=== PATIENT | male | born 1970 | race Caucasian/White ===

== ENCOUNTER 2018-08-29 17:45 | Inpatient (IN) | payer MEDICARE ==
[~2018-08-29] VITALS: Ht 175.3 cm; Wt 200.8 kg
[2018-08-29] MEDS ORDERED: CARV6.25 PO (18:06)
[2018-08-29] MEDS ORDERED: CLON0.2T PO (18:06)
[2018-08-29] MEDS ORDERED: PLAV1TAB2 PO (18:06)
[2018-08-29] MEDS ORDERED: LABE20TAB PO (18:06)
[2018-08-29] MEDS ORDERED: HYDR-4517 PO (18:06)
[2018-08-29] MEDS ORDERED: XANA0.5T PO (18:06)
[2018-08-29] MEDS ORDERED: FLUO40CA PO (18:06)
[2018-08-29] MEDS ORDERED: AMLO10TA PO (18:06)
[2018-08-29] MEDS ORDERED: LASI20TA3 PO (18:06)
[2018-08-29] MEDS ORDERED: ATOR40TA75 PO (18:06)
[2018-08-29] MEDS ORDERED: ASPI81TA85 PO (18:06)
[2018-08-29] MEDS ORDERED: ISOS30TA4 PO (18:06)
[2018-08-29] MEDS ORDERED: POTA10CA32 PO (18:06)
[2018-08-29 18:22] LABS: BASO % 0.4 % (0.0-1.0); EOS # 0.3 10^3/uL (0.0-0.50); EOS % 4.5 % (0.0-3.0); HEMATOCRIT 37.7 % (42.0-52.0); HEMOGLOBIN 12.5 g/dl (13.5-17.5); LYMPH # 1.7 10^3/uL (1.5-4.5); LYMPH % 25.7 % (24.0-44.0); MEAN CORPUSCULAR HEMOGLOBIN 30.4 pg (27.0-33.0); MEAN CORPUSCULAR HGB CONC 33.2 g/dl (32.0-36.5); MEAN CORPUSCULAR VOLUME 91.7 fl (80.0-96.0); MONO # 0.6 10^3/uL (0.0-0.8); MONO % 9.2 % (0.0-5.0); NEUTROPHILS % 59.9 % (36.0-66.0); PLATELET COUNT, AUTOMATED 185 10^3/uL (150-450); RED BLOOD COUNT 4.11 10^6/uL (4.30-6.10); WHITE BLOOD COUNT 6.7 10^3/uL (4.0-10.0)
[2018-08-29 18:33] LABS: INR 0.96; PROTHROMBIN TIME 12.5 SECONDS (11.8-14.0)
[2018-08-29 18:34] LABS: PARTIAL THROMBOPLASTIN TIME 28.6 SECONDS (25.0-38.4)
[2018-08-29] MEDS ORDERED: ISOVUE-370 76% 100ML VIAL (Q9967) As Ordered ONE (18:35)
[2018-08-29 19:04] LABS: ALBUMIN 3.4 GM/DL (3.2-5.2); ALT/SGPT 23 U/L (12-78); BILIRUBIN,DIRECT 0.1 MG/DL (0.0-0.2); BILIRUBIN,TOTAL 0.4 MG/DL (0.2-1.0); CK-MB VALUE MASS 1.3 NG/ML (<3.6); CPK CREATINE PHOSPHOKINASE 70 U/L (39-308); FREE T4 1.16 NG/DL (0.76-1.46); LIPASE 203 U/L (73-393); MB/CK RELATIVE INDEX 1.86 (< OR =4); NT-PRO BNP 164 PG/ML (<125); TOTAL PROTEIN 6.5 GM/DL (6.4-8.2); TROPONIN I < 0.02 NG/ML (< 0.10)
--- NOTE | 2018-08-29 19:27 | REPVR ---
EXAM: CT Angiography Chest With Contrast EXAM DATE/TIME: 08/29/2018 6:38 PM CLINICAL HISTORY: 48 years old, male; Chest pain; Type not specified; Additional info: Cp, [facility] TECHNIQUE: Imaging protocol: Axial computed tomographic angiography images of the chest with intravenous contrast using CT angiography protocol. Coronal and sagittal reformatted images were created and reviewed. 3D rendering: MIP reconstructed images were created and reviewed. Radiation optimization: All CT scans at this facility use at least one of these dose optimization techniques: automated exposure control; mA and/or kV adjustment per patient size (includes targeted exams where dose is matched to clinical indication); or iterative reconstruction. Contrast material: ISOVUE 370; Contrast volume: 100 ml; Contrast route: IV; COMPARISON: CR PORTABLE CHEST X-RAY 08/29/2018 6:14 PM FINDINGS: Pulmonary arteries: There is probable thrombus along the margins of the left pulmonary artery at the left hilum. There are also small lymph nodes of the left hilum making evaluation more difficult and separation difficult. There are small lymph nodes at the right hilum. However it is suspected that there is a small amount of thrombus along the margin of the right lower lobe pulmonary artery. Small probable emboli in the pulmonary arteries approaching the right lung base. Evaluation is made more difficult because of hilar/small lymph nodes and lymphoid tissue. Aorta: There is opacification of the aorta which appears intact. Thyroid: There is a 1.4 CM nodule of the left lobe of the thyroid with central calcification. Although this nodule is not large calcification makes this somewhat worrisome. I would recommend thyroid ultrasound for further evaluation in this patient. Lungs: Unremarkable. No consolidation. No masses. Pleural space: Unremarkable. No pneumothorax. No pleural effusion. Heart: There is mild cardiomegaly with no evidence of pericardial effusion. Bones/joints: Unremarkable. No acute fracture. Soft tissues: Unremarkable. IMPRESSION: 1. Suspect thrombus at the margins of the left pulmonary artery as it bifurcates at the left hilum. It is difficult to separate this from prominent lymph nodes and lymphoid tissue. 2. Suspect thrombus along the margins of the right pulmonary artery at the right infrahilar region and probable small pulmonary emboli in descending pulmonary arterial branches to the right lung base. This also is difficult to separate from right infrahilar lymphoid tissue, however, the small filling defects in the more distal branches make this all more suggestive of PE. 3. 1.3 CM left thyroid nodule with calcifications making this of more concern and suggest thyroid ultrasound. COMMENT: In patients aged 35 years and older with an incidental thyroid nodule equal to or greater than 1.[address], MRI or extrathyroidal US, further evaluation with dedicated thyroid US is recommended for patients with normal life expectancy and without comorbidities. For smaller nodules without suspicious features, no further evaluation or follow up is recommended. Electronically signed by: Sesar Villa On 08/29/2018 19:27:34 PM
[2018-08-29] MEDS ORDERED: HEPARIN DRIP 25,000 UNITS in APPROPRIATE DILUENT 1 EA IV SCH ×2 (19:38→20:18)
[2018-08-29] MEDS ORDERED: HEPARIN SOD (PORCINE) 5000 UNITS/ML VIAL IV ONE (19:45)
[2018-08-29] MEDS ORDERED: MOM 30ML SUSPENSION UDC PO PRN (20:15)
[2018-08-29] MEDS ORDERED: MAALOX 30 ML SUSP *UDC PO PRN (20:15)
[2018-08-29] MEDS ORDERED: ACETAMINOPHEN TAB 650MG DOSE (2X325MG) PO PRN (20:15)
[2018-08-29] MEDS ORDERED: HEPARIN SOD (PORCINE) 5000 UNITS/ML VIAL IV PRN (20:30)
--- NOTE | 2018-08-29 20:30 | HPEPDOC ---
General Date of Admission 08/29/18 Date of Service: Aug 29, 2018 Attending Physician: MAXWELL JUAREZ MD Chief Complaint The patient is a 48-year-old male admitted with a reason for visit of Chest Pain . Source: Patient Exam Limitations: No limitations Timing/Duration: Other (posterior) Severity: Moderate Associated Symptoms: Chest Pain, Shortness of breath History of Present Illness 48 years old, morbidly obese, white male with past medical history of coronary artery disease status post 6 stents placed in last one in July 2018 at [facility] in [place]. Patient complaining of chest pain which radiates to between his both shoulders and then towards his neck and he feels tired afterwards and these episodes are transient, lasting for about 5-10 minutes and resolved spontaneously. No medications or position induces it or resolves it. These chest pains are associated with mild shortness of breath, but no syncope, nausea, vomiting, etc. Patient lives in [facility]. Since last 2 days for the similar symptoms. The cardiac workup done and was discharged home today, while he was in became he developed the similar symptoms and decided come to [facility] ED. Home Medications Scheduled Amlodipine Besylate (Norvasc) 10 Mg Tablet, 10 MG PO QHS, (Reported) Aspirin (Aspir 81) 81 Mg Tablet.dr, 81 MG PO DAILY, (Reported) Atorvastatin Calcium (Atorvastatin Calcium) 40 Mg Tablet, 40 MG PO DAILY, (Reported) Carvedilol (Carvedilol) 6.25 Mg Tablet, 6.25 MG PO BID, (Reported) Clonidine HCl (Clonidine HCl) 0.2 Mg Tablet, 0.2 MG PO TID, (Reported) Clopidogrel Bisulfate (Plavix) 75 Mg Tablet, 75 MG PO DAILY, (Reported) Ergocalciferol (Vitamin D2) (Drisdol) 50,000 Unit Capsule, 50,000 UNIT PO 1XWK, (Reported) FRIDAYS Fluoxetine Hcl (Fluoxetine HCl) 40 Mg Capsule, 40 MG PO DAILY, (Reported) Furosemide (Lasix) 20 Mg Tablet, 20 MG PO BID, (Reported) Irbesartan (Irbesartan) 150 Mg Tablet, 150 MG PO DAILY, (Reported) Isosorbide Mononitrate (Isosorbide Mononitrate ER) 30 Mg Tab.er.24h, 30 MG PO BID, (Reported) Labetalol HCl (Labetalol HCl) 200 Mg Tablet, 400 MG PO BID, (Reported) Nitroglycerin (Nitroglycerin Patch) 0.4 Mg/Hr Patch.td24, 0.4 MG TD DAILY, (Reported) 12 HOURS ON, 12 HOURS OFF Potassium Chloride (Potassium Chloride) 10 Meq Capsule.er, 10 MEQ PO DAILY, (Reported) Ranolazine (Ranexa) 1,000 Mg Tab.er.12h, 1,000 MG PO BID, (Reported) Scheduled PRN Alprazolam (Alprazolam) 0.25 Mg Tablet, 0.25 MG PO BID PRN for ANXIETY, (Reported) Fluticasone Propionate (Flonase Allergy Relief) 9.9 Ml [place].susp, 2 SPRAY NARES DAILY PRN for CONGESTION, (Reported) Hydrocodone/Acetaminophen (Hydrocodone-Acetamin 10-325 mg) 1 Each Tablet, 1 TAB PO TID PRN for PAIN, (Reported) Nitroglycerin (Nitrostat) 0.4 Mg Tab.subl, 0.4 MG SL NITRO PRN for CHEST PAIN, (Reported) Allergies Coded Allergies: Penicillins (Verified Allergy, Unknown, RASH, 08/29/18) amoxicillin (Verified Allergy, Unknown, RASH, 08/29/18) baclofen (Verified Allergy, Unknown, RASH/NV, 08/29/18) ketorolac (Verified Allergy, Unknown, SOB, 08/29/18) lisinopril (Verified Allergy, Unknown, LIP SWELLING, 08/29/18) metaxalone (Verified Allergy, Unknown, RASH/NV, 08/29/18) naproxen (Verified Allergy, Unknown, RASH/NV, 08/29/18) tree nut (Verified Allergy, Unknown, SWELLING, 08/29/18) Past Medical History Medical History CAD, hypertension, lymphadenopathy, DJD neck herniated disks PVD Surgical History 6. Cardiac stents placed and no other surgeries Family History Significant Family History: No pertinent family hx Social History * Smoker: Denies Alcohol: Denies Drugs: denies A-FIB/CHADSVASC A-FIB History Current/History of A-Fib/PAF?: No Review of Systems Constitutional: Denies: Chills, Fever, Malaise, Night Sweats, Weakness, Fatigue, Weight Loss, Lethargy, Other Eyes: Denies: Pain, Vision change, Conjunctivae inflammation, Eyelid inflammation, Redness, Other ENT: Denies: Head Aches, Ear Pain, Dysphagia, Sinus Congestion, Post Nasal Drip, Sore Throat, Epistaxis, Other Symptoms Skin: Denies: Rash, Lesions, Jaundice, Bruising, Itching, Dry, Breakdown, Nail Changes, Other Pulmonary: Reports: Dyspnea Cardiovascular: Reports: Chest Pain Gastrointestinal: Denies: Nausea, Vomiting, Abdominal Pain, Diarrhea, Constipation, Melena, Hematochezia, Other Symptoms Genitourinary: Denies: Dysuria, Frequency, Incontinence, Hematuria, Retention, Other Symptoms Hematologic: Denies: Bruising, Bleeding Excessively, Petecchia, Purpura, Enlarged Lymph Nodes, Other Hematologic Endocrine: Denies: Polydipsia, Polyphagia, Polyuria, Heat Intolerance, Cold Intolerance, Other Endocrine Sx Musculoskeletal: Denies: Neck Pain, Back Pain, Shoulder Pain, Arm Pain, Hand Pain, Leg Pain, Foot Pain, Joint Pain, Muscle Pain, Spasms, Other Symptoms Neurological: Denies: Weakness, Numbness, Incoordination, Change in speech, Confusion, Seizures, Other Symptoms Psych: Denies: Mood Normal, Anxiety, Depression, Memory Issues, Thoughts of Self Harm, Anger, Thoughts of Harming Other, Other Psych Physical Examination General Exam: Positive: Alert, Cooperative Eye Exam: Positive: PERRLA, Conjunctiva & lids normal ENT Exam: Positive: Atraumatic, Mucous membr. moist/pink Neck Exam: Positive: Supple Chest Exam: Positive: Clear to auscultation Heart Exam: Positive: Rate Normal, Normal S1, Normal S2 Abdomen Exam: Positive: Normal bowel sounds, Soft Extremity Exam: Positive: Normal pulses Skin Exam: Positive: Nl turgor and temperature Neuro Exam: Positive: Normal Speech, Strength at 5/5 X4 ext, Sensation Intact Psych Exam: Positive: Mental status NL, Mood NL, Oriented x 3 Vital Signs Vital Signs Date Time Temp Pulse Resp B/P (MAP) Pulse Ox O2 Delivery O2 Flow Rate FiO2 08/29/18 19:23 64 18 137/87 (104) 98 Room Air 08/29/18 18:33 97.6 Laboratory Data Labs 24H Laboratory Tests 2 08/29/18 18:15: Immature Granulocyte % (Auto) 0.3, White Blood Count 6.7, Red Blood Count 4.11L, Hemoglobin 12.5L, Hematocrit 37.7L, Mean Corpuscular Volume 91.7, Mean Corpuscular Hemoglobin 30.4, Mean Corpuscular Hemoglobin Concent 33.2, Red Cell Distribution Width 14.4, Platelet Count 185, Neutrophils (%) (Auto) 59.9, Lymphocytes (%) (Auto) 25.7, Monocytes (%) (Auto) 9.2H, Eosinophils (%) (Auto) 4.5H, Basophils (%) (Auto) 0.4, Neutrophils # (Auto) 4.0, Lymphocytes # (Auto) 1.7, Monocytes # (Auto) 0.6, Eosinophils # (Auto) 0.3, Basophils # (Auto) 0.0, Nucleated Red Blood Cells % (auto) 0.0, Prothrombin Time 12.5, Prothromb Time International Ratio 0.96, Activated Partial Thromboplast Time 28.6, Aspartate Amino Transf (AST/SGOT) 13, Alanine Aminotransferase (ALT/SGPT) 23, Alkaline Ph osphatase 109, Total Bilirubin 0.4, Direct Bilirubin 0.1, Total Creatine Kinase 70, Creatine Kinase MB 1.3, Creatine Kinase MB Relative Index 1.86, Troponin I < 0.02, LO-Wvl-P-Type Natriuretic Peptide 164H, Total Protein 6.5, Albumin 3.4, Albumin/Globulin Ratio 1.10, Lipase 203, Thyroid Stimulating Hormone (TSH) 4.010H, Free Thyroxine 1.16 08/29/18 18:16: POC Glucose (Misc Panel) 115H, POC Sodium (Misc Panel) 139, POC Potassium (Misc Panel) 4.4, POC Chloride (Misc Panel) 99, POC Total CO2 (Misc Panel) 29.0H, POC Blood Urea Nitrogen (Misc Panel 18, POC Ionized Calcium (Misc Panel) 4.8, POC Creatinine (Misc Panel) 1.2, POC Hematocrit (Misc Panel) 36.0L CBC/BMP Laboratory Tests 08/29/18 18:15 Red Blood Count 4.11 L, Mean Corpuscular Volume 91.7, Mean Corpuscular Hemoglobin 30.4, Mean Corpuscular Hemoglobin Concent 33.2, Red Cell Distribution Width 14.4, Neutrophils (%) (Auto) 59.9, Lymphocytes (%) (Auto) 25.7, Monocytes (%) (Auto) 9.2 H, Eosinophils (%) (Auto) 4.5 H, Basophils (%) (Auto) 0.4, Neutrophils # (Auto) 4.0, Lymphocytes # (Auto) 1.7, Monocytes # (Auto) 0.6, Eosinophils # (Auto) 0.3, Basophils # (Auto) 0.0 Problems (1) Pulmonary emboli Status: Acute Problem Text: 48 years old white male admitted with the chest pain with mild shortness of breath. He had a CT angiogram done which shows suspected thrombus at the margin of left pulmonary artery as it bifurcates into the left hilum and suspected thrombus along the margins of right pulmonary artery and the right infrahilar region and small pulmonary emboli and descending pulmonary artery branches. The right lung base. Patient does have a small filling defects and more distal branches making him more like PE. Patient also has a 1.3 cm left thyroid nodule with calcification and the ultrasound was recommended. Admitted to PCU for close observation Telemetry monitoring patient is clinically stable with vital signs are stable and the pulse ox is 98% on room air Start anticoagulation with heparin, add by mouth Coumadin and 24-48 hours once he is completely anticoagulated with heparin Continue all home medications PT, PTT, as per heparin protocol Discussed with Dr. patino and agreed with the present management Continue all home medications Thyroid ultrasound for possible thyroid nodule DVT prophylaxis, patient already on full-strength heparin for anticoagulation for PE 2 g sodium diet Bed rest with bedside commode O2 support as needed (2) Thyroid nodule Problem Text: Ultrasound of the thyroid gland has been ordered for further workup as per radiology's recommendation , TSH, T3, T4 ordered Plan / VTE VTE Prophylaxis Ordered?: Yes MAXWELL JUAREZ MD Aug 29, 2018 20:30
[2018-08-29] MEDS ORDERED: NITR0.4D6 TD (20:39)
[2018-08-29] MEDS ORDERED: NITR4TASL SL (20:39)
[2018-08-29] MEDS ORDERED: IRBE150T12 PO (20:39)
[2018-08-29] MEDS ORDERED: ALPR0.25 PO (20:39)
[2018-08-29] MEDS ORDERED: FLON1SPR NARES (20:40)
[2018-08-29] MEDS ORDERED: RANE1000 PO (20:40)
[2018-08-29] MEDS ORDERED: DRIS50003 PO (20:42)
[2018-08-29] MEDS: DOCUSATE SODIUM 100 MG CAP PO SCH (20:49)
[2018-08-29] MEDS: ISOSORBIDE MON. (IMDUR) 30 MG XR TAB PO SCH (21:00)
[2018-08-29] MEDS: amLODIPine 10 MG TAB PO SCH (21:00)
[2018-08-29] MEDS: LABETALOL 200 MG TAB PO SCH (21:00)
[2018-08-29 21:50] VITALS: BP 155/77
--- NOTE | 2018-08-29 22:07 | REPVR ---
EXAM: US Soft Tissue Head and Neck, Thyroid EXAM DATE/TIME: 08/29/2018 9:28 PM CLINICAL HISTORY: 48 years old, male; Abnormal findings; Abnormal radiologic study of neck; Additional info: Thyroid nodule TECHNIQUE: Imaging protocol: Real-time ultrasound scan of the neck with image documentation. Exam focused on the thyroid. COMPARISON: No relevant prior studies available. FINDINGS: Right thyroid lobe: The right lobe of thyroid measures 5.8 CM in length by 1.9 CM in width by 2 CM in AP dimension. I do not detect nodules of the right lobe of the thyroid. Left thyroid lobe: The left lobe of the thyroid measures 5.4 CM in length by 1.8 CM in width by 1.4 CM in AP dimension. At the lateral aspect of the upper pole left lobe of the thyroid there is a 4.9 mm x 8.2 mm x 3.9 mm nodule with calcifications. This is fairly well defined and I do not detect significant vascularity. In the midportion left lobe of the thyroid medial in position there is a 10.9 mm x 10.2 mm x 10.2 mm nodule with central calcification. I do not detect excessive vascularity. Isthmus: The isthmus of the thyroid measures 4 mm. These left nodules are probably benign, however, I would recommend a followup ultrasound in no longer than 6 months for reevaluation and to document stability. IMPRESSION: There are 2 nodules left lobe of the thyroid both with calcifications and probably benign nodules. Recommend followup ultrasound in 6 months to document that these are stable. Electronically signed by: Sesar Villa On 08/29/2018 22:07:18 PM
[2018-08-29] MEDS: NORCO, ANEXSIA 5/325MG TABLET (HYDROcodone/ACETAMINOPHEN) PO PRN (23:00)
[2018-08-30] VITALS (7 sets, daily range): BP systolic 104–142; BP diastolic 56–96
[2018-08-30] MEDS ORDERED: FLUTICASONE PROP 0.05% NASAL SPRAY 16 GM (FLONASE) NARES PRN
[2018-08-30] MEDS ORDERED: NITROGLYCERIN 0.4 MG SUBL TABLET SL PRN
[2018-08-30] MEDS: CARVedilol 6.25 MG TAB PO SCH ×3 (01:03→20:35)
[2018-08-30] MEDS: cloNIDine 0.2 MG TAB PO SCH ×4 (01:03→20:36)
[2018-08-30] MEDS: RANOLAZINE 500 MG ER TAB PO SCH ×3 (01:03→20:35)
[2018-08-30 04:56] LABS: HEMATOCRIT 36.6 % (42.0-52.0); HEMOGLOBIN 11.9 g/dl (13.5-17.5); MEAN CORPUSCULAR HEMOGLOBIN 29.1 pg (27.0-33.0); MEAN CORPUSCULAR HGB CONC 32.5 g/dl (32.0-36.5); MEAN CORPUSCULAR VOLUME 89.5 fl (80.0-96.0); PLATELET COUNT, AUTOMATED 167 10^3/uL (150-450); RED BLOOD COUNT 4.09 10^6/uL (4.30-6.10); WHITE BLOOD COUNT 5.5 10^3/uL (4.0-10.0)
[2018-08-30 05:33] LABS: ALBUMIN 2.8 GM/DL (3.2-5.2); ALT/SGPT 22 U/L (12-78); BILIRUBIN,TOTAL 0.4 MG/DL (0.2-1.0); BLOOD UREA NITROGEN 17 MG/DL (7-18); CALCIUM LEVEL 8.2 MG/DL (8.5-10.1); CARBON DIOXIDE LEVEL 31 MEQ/L (21-32); CHLORIDE LEVEL 105 MEQ/L (98-107); CREATININE FOR GFR 1.16 MG/DL (0.70-1.30); GLOMERULAR FILTRATION RATE > 60.0 (>60); GLUCOSE, FASTING 115 MG/DL (70-100); MAGNESIUM LEVEL 2.2 MG/DL (1.8-2.4); POTASSIUM SERUM 4.1 MEQ/L (3.5-5.1); SODIUM LEVEL 140 MEQ/L (136-145); TOTAL PROTEIN 6.1 GM/DL (6.4-8.2); TROPONIN I < 0.02 NG/ML (< 0.10)
--- NOTE | 2018-08-30 07:18 | ECGEPIP ---
[facility] - ED Test Date: 2018-08-29 Pat Name: JACKI SCHULTZ Department: Room: [place] [address] Gender: Male [employer] Assistant: lori : 1970 Requested By: Tia Maldonado Order Number: [id number] Reading MD: Prudencio Craig Measurements Intervals [place] Rate: 71 P: 9 NM: 198 QRS: 9 QRSD: 101 T: 39 QT: 382 QTc: 416 Interpretive Statements SINUS RHYTHM NO PRIORS FOR COMPARISON Electronically Signed on 08-30-2018 7:18:04 EDT by Prudencio Craig
[2018-08-30] MEDS: ATORVASTATIN 20 MG TAB PO SCH (08:22)
[2018-08-30] MEDS: LABETALOL 200 MG TAB PO SCH ×2 (08:23→20:35)
[2018-08-30] MEDS: ISOSORBIDE MON. (IMDUR) 30 MG XR TAB PO SCH ×2 (08:24→20:34)
[2018-08-30] MEDS: DOCUSATE SODIUM 100 MG CAP PO SCH ×2 (08:24→20:34)
[2018-08-30] MEDS: POTASSIUM CHLORIDE 10 MEQ SR TABLET PO SCH (08:24)
[2018-08-30] MEDS: CLOPIDOGREL 75 MG TAB PO SCH (08:24)
[2018-08-30] MEDS: NORCO, ANEXSIA 5/325MG TABLET (HYDROcodone/ACETAMINOPHEN) PO PRN ×4 (08:25→20:36)
[2018-08-30] MEDS: IRBESARTAN 150 MG TAB PO SCH (08:25)
[2018-08-30] MEDS: ASPIRIN 81 MG ENTERIC TAB PO SCH (08:25)
[2018-08-30] MEDS: NITROGLYCERIN 0.4 MG/HR PATCH TD SCH (08:26)
[2018-08-30] MEDS: FLUoxetine 20 MG CAP PO SCH (08:32)
[2018-08-30] MEDS: FUROSEMIDE 20 MG TAB PO SCH ×2 (08:32→16:17)
[2018-08-30 10:00] LABS: TOTAL T3 165.3 NG/DL (60.0-181.0)
--- NOTE | 2018-08-30 10:13 | REP ---
CHEST, SINGLE VIEW: There is no evidence of acute infiltrate. No pleural effusion is seen. The heart is normal in size. The mediastinal silhouette is unremarkable. The visualized osseous structures are intact. IMPRESSION: No acute pulmonary disease. Electronically Signed by Parminder Dumont MD 08/31/2018 01:28 P
[2018-08-30] MEDS ORDERED: RIVAROXABAN 15 MG TAB (XARELTO) PO SCH (12:00)
[2018-08-30 12:10] LABS: INR 1.03; PROTHROMBIN TIME 13.2 SECONDS (11.8-14.0)
--- NOTE | 2018-08-30 17:13 | IPNPDOC ---
Subjective Date Seen The patient was seen on 08/30/18.at 835 am Subjective Chief Complaint/HPI chest pain upper back pain Events since last encounter patient reports chest pain is still persistent and he is short of breath with walking Objective Physical Examination General Exam: Positive: Alert, Cooperative, Other (morbidly obeses) Eye Exam: Positive: PERRLA, Conjunctiva & lids normal ENT Exam: Positive: Atraumatic, Mucous membr. moist/pink Neck Exam: Positive: Supple Chest Exam: Positive: Clear to auscultation Heart Exam: Positive: Rate Normal, Normal S1, Normal S2 Abdomen Exam: Positive: Normal bowel sounds, Soft Extremity Exam: Positive: Normal pulses, Swelling (LLE swollen for several weeks per patient) Skin Exam: Positive: Nl turgor and temperature Neuro Exam: Positive: Normal Speech, Strength at 5/5 X4 ext, Sensation Intact Psych Exam: Positive: Mental status NL, Mood NL, Oriented x 3 Assessment /Plan Assessment is a 48 yr old M w CAD (s/p 6 stents), Morbid obesity, hypertension, lymphadenopathy, DJD, neck herniated disks and PVD who is admitted for management of DVT/PE. 1.PE/DVT- not submassive as trops wnl and BNP only slightly elevated Plan: f/u Echo report/ c/w Heparin drip and per d/w (Wrapper Hand) will transition to Warfarin (bc of his BMI it may be difficult to start a NOAC), f/u INR daily until therapeutic 2.Thyroid nodule US report "IMPRESSION: There are 2 nodules left lobe of the thyroid both with calcifications and probably benign nodules. Recommend followup ultrasound in 6 months to document that these are stable" -TSH 4.0 but T4 and T3 wnl Plan:can f/u w endo on an out patient basis 3.CAD Plan: c/w current meds 4. HTN Plan: c/w current meds Problems (1) Pulmonary emboli Status: Acute (2) Thyroid nodule Status: Chronic Plan/VTE VTE Prophylaxis Ordered?: Yes (heparin and transition to warfarin) Disposition home pending therapeutic INR VS, I&O, 24H, Fishbone Vital Signs/I&O Vital Signs Date Time Temp Pulse Resp B/P (MAP) Pulse Ox O2 Delivery O2 Flow Rate FiO2 08/30/18 16:16 120/72 08/30/18 16:16 20 7/22/19 16:00 97.1 65 98 08/29/18 20:46 Room Air I&O- Last 24 Hours up to 6 AM 08/30/18 06:00 Intake Total 116 ml Output Total 1475 ml Balance -1359 ml Laboratory Data 24H LABS Laboratory Tests 2 08/29/18 18:15: Immature Granulocyte % (Auto) 0.3, White Blood Count 6.7, Red Blood Count 4.11L, Hemoglobin 12.5L, Hematocrit 37.7L, Mean Corpuscular Volume 91.7, Mean Corpuscular Hemoglobin 30.4, Mean Corpuscular Hemoglobin Concent 33.2, Red Cell Distribution Width 14.4, Platelet Count 185, Neutrophils (%) (Auto) 59.9, Lymphocytes (%) (Auto) 25.7, Monocytes (%) (Auto) 9.2H, Eosinophils (%) (Auto) 4.5H, Basophils (%) (Auto) 0.4, Neutrophils # (Auto) 4.0, Lymphocytes # (Auto) 1.7, Monocytes # (Auto) 0.6, Eosinophils # (Auto) 0.3, Basophils # (Auto) 0.0, Nucleated Red Blood Cells % (auto) 0.0, Prothrombin Time 12.5, Prothromb Time International Ratio 0.96, Activated Partial Thromboplast Time 28.6, Aspartate Amino Transf (AST/SGOT) 13, Alanine Aminotransferase (ALT/SGPT) 23, Alkaline Phosphatase 109, Total Bilirubin 0.4, Direct Bilirubin 0.1, Total Creatine Kinase 70, Creatine Kinase MB 1.3, Creatine Kinase MB Relative Index 1.86, Troponin I < 0.02, EF-Jtb-K-Type Natriuretic Peptide 164H, Total Protein 6.5, Albumin 3.4, Albumin/Globulin Ratio 1.10, Lipase 203, Thyroid Stimulating Hormone (TSH) 4.010H, Free Thyroxine 1.16, Total Triiodothyronine 165.3 08/29/18 18:16: POC Glucose (Misc Panel) 115H, POC Sodium (Misc Panel) 139, POC Potassium (Misc Panel) 4.4, POC Chloride (Misc Panel) 99, POC Total CO2 (Misc Panel) 29.0H, POC Blood Urea Nitrogen (Misc Panel 18, POC Ionized Calcium (Misc Panel) 4.8, POC Creatinine (Misc Panel) 1.2, POC Hematocrit (Misc Panel) 36.0L 08/30/18 02:46: Activated Partial Thromboplast Time 123.5*H, Troponin I < 0.02 08/30/18 04:43: Nucleated Red Blood Cells % (auto) 0.0, Activated Partial Thromboplast Time 115.1H, Aspartate Amino Transf (AST/SGOT) 23, Alanine Aminotransferase (ALT/SGPT) 22, Alkaline Phosphatase 83, Total Bilirubin 0.4, Troponin I < 0.02, Total Protein 6.1L, Albumin 2.8L, Albumin/Globulin Ratio 0.85L, Anion Gap 4L, Glomerular Filtration Rate > 60.0, Blood Urea Nitrogen 17, Creatinine 1.16, Sodium Level 140, Potassium Level 4.1, Chloride Level 105, Carbon Dioxide Level 31, Calcium Level 8.2L, Magnesium Level 2.2 08/30/18 11:34: Prothrombin Time 13.2, Prothromb Time International Ratio 1.03 CBC/BMP Laboratory Tests 08/29/18 18:15 Red Blood Count 4.11 L, Mean Corpuscular Volume 91.7, Mean Corpuscular Hemo globin 30.4, Mean Corpuscular Hemoglobin Concent 33.2, Red Cell Distribution Width 14.4, Neutrophils (%) (Auto) 59.9, Lymphocytes (%) (Auto) 25.7, Monocytes (%) (Auto) 9.2 H, Eosinophils (%) (Auto) 4.5 H, Basophils (%) (Auto) 0.4, Neutrophils # (Auto) 4.0, Lymphocytes # (Auto) 1.7, Monocytes # (Auto) 0.6, Eosinophils # (Auto) 0.3, Basophils # (Auto) 0.0 08/30/18 04:43 Red Blood Count 4.09 L, Mean Corpuscular Volume 89.5, Mean Corpuscular Hemoglobin 29.1, Mean Corpuscular Hemoglobin Concent 32.5, Red Cell Distribution Width 14.5, Calcium Level 8.2 L, Aspartate Amino Transf (AST/SGOT) 23, Alanine Aminotransferase (ALT/SGPT) 22, Alkaline Phosphatase 83, Total Bilirubin 0.4, Total Protein 6.1 L, Albumin 2.8 L JORGE L BERMUDEZ MD Aug 30, 2018 17:13
[2018-08-30] MEDS: amLODIPine 10 MG TAB PO SCH (20:36)
[2018-08-30] MEDS: **NOTE PATIENT COMMENT** MISC XX SCH (20:36)
[2018-08-31] VITALS (7 sets, daily range): BP systolic 99–135; BP diastolic 55–72
[2018-08-31] MEDS: NORCO, ANEXSIA 5/325MG TABLET (HYDROcodone/ACETAMINOPHEN) PO PRN ×6 (01:44→21:51)
[2018-08-31 05:06] LABS: HEMATOCRIT 33.3 % (42.0-52.0); HEMOGLOBIN 11.1 g/dl (13.5-17.5); MEAN CORPUSCULAR HEMOGLOBIN 29.5 pg (27.0-33.0); MEAN CORPUSCULAR HGB CONC 33.3 g/dl (32.0-36.5); MEAN CORPUSCULAR VOLUME 88.6 fl (80.0-96.0); PLATELET COUNT, AUTOMATED 169 10^3/uL (150-450); RED BLOOD COUNT 3.76 10^6/uL (4.30-6.10)
[2018-08-31 05:19] LABS: INR 1.14; PROTHROMBIN TIME 14.3 SECONDS (11.8-14.0)
[2018-08-31 05:25] LABS: BLOOD UREA NITROGEN 18 MG/DL (7-18); CALCIUM LEVEL 8.6 MG/DL (8.5-10.1); CARBON DIOXIDE LEVEL 31 MEQ/L (21-32); CHLORIDE LEVEL 107 MEQ/L (98-107); CREATININE FOR GFR 1.23 MG/DL (0.70-1.30); GLOMERULAR FILTRATION RATE > 60.0 (>60); GLUCOSE, FASTING 128 MG/DL (70-100); POTASSIUM SERUM 4.5 MEQ/L (3.5-5.1); SODIUM LEVEL 142 MEQ/L (136-145)
[2018-08-31] MEDS: POTASSIUM CHLORIDE 10 MEQ SR TABLET PO SCH (09:00)
[2018-08-31] MEDS: RANOLAZINE 500 MG ER TAB PO SCH ×2 (09:00→20:18)
[2018-08-31] MEDS: ATORVASTATIN 20 MG TAB PO SCH (09:01)
[2018-08-31] MEDS: DOCUSATE SODIUM 100 MG CAP PO SCH ×2 (09:01→20:16)
[2018-08-31] MEDS: ISOSORBIDE MON. (IMDUR) 30 MG XR TAB PO SCH ×2 (09:01→20:17)
[2018-08-31] MEDS: FLUoxetine 20 MG CAP PO SCH (09:01)
[2018-08-31] MEDS: FUROSEMIDE 20 MG TAB PO SCH ×2 (09:01→16:41)
[2018-08-31] MEDS: ASPIRIN 81 MG ENTERIC TAB PO SCH (09:02)
[2018-08-31] MEDS: IRBESARTAN 150 MG TAB PO SCH (09:02)
[2018-08-31] MEDS: cloNIDine 0.2 MG TAB PO SCH ×3 (09:02→20:18)
[2018-08-31] MEDS: CARVedilol 6.25 MG TAB PO SCH ×2 (09:02→20:17)
[2018-08-31] MEDS: LABETALOL 200 MG TAB PO SCH ×2 (09:03→20:17)
[2018-08-31] MEDS: NITROGLYCERIN 0.4 MG/HR PATCH TD SCH (09:03)
[2018-08-31] MEDS: CLOPIDOGREL 75 MG TAB PO SCH (09:50)
--- NOTE | 2018-08-31 16:01 | IPNPDOC ---
Subjective Date Seen The patient was seen on 08/31/18.at 307pm Subjective Chief Complaint/HPI back pain chest pain Events since last encounter the patient continues to c/o of back and chest pain Objective Physical Examination General Exam: Positive: Alert, Cooperative, Other (morbidly obeses) Eye Exam: Positive: PERRLA, Conjunctiva & lids normal ENT Exam: Positive: Atraumatic, Mucous membr. moist/pink Neck Exam: Positive: Supple Chest Exam: Positive: Clear to auscultation Heart Exam: Positive: Rate Normal, Normal S1, Normal S2 Abdomen Exam: Positive: Normal bowel sounds, Soft Extremity Exam: Positive: Normal pulses, Swelling (LLE swollen for several weeks per patient) Skin Exam: Positive: Nl turgor and temperature Neuro Exam: Positive: Normal Speech, Strength at 5/5 X4 ext, Sensation Intact Psych Exam: Positive: Mental status NL, Mood NL, Oriented x 3 Assessment /Plan Assessment is a 48 yr old M w CAD (s/p 6 stents), Morbid obesity, hypertension, lymphadenopathy, DJD, neck herniated disks and PVD who is admitted for management of DVT/PE. 1.PE/DVT - not submassive as trops wnl and BNP only slightly elevated Plan: f/u Echo report/ c/w Heparin drip and per d/w (Shirt Bander) will transition to Warfarin & f/u INR daily until therapeutic 2.Thyroid nodule -findings of US and possible benign nature per Rads discussed w patient -TSH 4.0 but T4 and T3 wnl Plan:can f/u w endo on an out patient basis for repeat US in 6 months 3.CAD Plan: c/w current meds 4. HTN Plan: c/w current meds Problems (1) Pulmonary emboli Status: Acute (2) Thyroid nodule Status: Chronic Plan/VTE VTE Prophylaxis Ordered?: Yes (heparin and transition to warfarin) VS, I&O, 24H, Fishbone Vital Signs/I&O Vital Signs Date Time Temp Pulse Resp B/P (MAP) Pulse Ox O2 Delivery O2 Flow Rate FiO2 08/31/18 15:00 61 111/56 (74) 08/31/18 14:35 20 08/31/18 12:00 96.6 100 08/29/18 20:46 Room Air I&O- Last 24 Hours up to 6 AM 08/31/18 05:59 Intake Total 1315 ml Output Total 500 ml Balance 815 ml Laboratory Data CBC/BMP Laboratory Tests 08/31/18 04:42 Red Blood Count 3.76 L, Mean Corpuscular Volume 88.6, Mean Corpuscular Hemoglobin 29.5, Mean Corpuscular Hemoglobin Concent 33.3, Red Cell Distribution Width 14.6 H, Calcium Level 8.6 JORGE L BERMUDEZ MD Aug 31, 2018 16:00
[2018-08-31] MEDS ORDERED: WARFARIN SOD 5 MG TAB PO ONE ×2 (17:00)
[2018-08-31] MEDS: amLODIPine 10 MG TAB PO SCH (20:17)
[2018-08-31] MEDS: **NOTE PATIENT COMMENT** MISC XX SCH (20:18)
[2018-09-01] MEDS: NORCO, ANEXSIA 5/325MG TABLET (HYDROcodone/ACETAMINOPHEN) PO PRN ×6 (01:53→22:16)
[2018-09-01 04:00] VITALS: BP 107/55
[2018-09-01 05:50] LABS: BASO % 0.8 % (0.0-1.0); EOS # 0.2 10^3/uL (0.0-0.50); HEMOGLOBIN 11.3 g/dl (13.5-17.5); LYMPH # 1.9 10^3/uL (1.5-4.5); LYMPH % 35.4 % (24.0-44.0); MEAN CORPUSCULAR HEMOGLOBIN 29.5 pg (27.0-33.0); MEAN CORPUSCULAR HGB CONC 32.3 g/dl (32.0-36.5); MEAN CORPUSCULAR VOLUME 91.4 fl (80.0-96.0); MONO # 0.5 10^3/uL (0.0-0.8); MONO % 8.5 % (0.0-5.0); NEUTROPHILS # 2.7 10^3/uL (1.8-7.7); NEUTROPHILS % 51.1 % (36.0-66.0); PLATELET COUNT, AUTOMATED 165 10^3/uL (150-450); RED BLOOD COUNT 3.83 10^6/uL (4.30-6.10); WHITE BLOOD COUNT 5.3 10^3/uL (4.0-10.0)
[2018-09-01 05:58] LABS: INR 0.99; PROTHROMBIN TIME 12.8 SECONDS (11.8-14.0)
[2018-09-01 06:04] LABS: BLOOD UREA NITROGEN 17 MG/DL (7-18); CALCIUM LEVEL 8.3 MG/DL (8.5-10.1); CARBON DIOXIDE LEVEL 30 MEQ/L (21-32); CHLORIDE LEVEL 107 MEQ/L (98-107); CREATININE FOR GFR 1.33 MG/DL (0.70-1.30); GLOMERULAR FILTRATION RATE > 60.0 (>60); GLUCOSE, FASTING 154 MG/DL (70-100); POTASSIUM SERUM 4.2 MEQ/L (3.5-5.1); SODIUM LEVEL 142 MEQ/L (136-145)
[2018-09-01 08:00] VITALS: BP 127/63
[2018-09-01] MEDS: POTASSIUM CHLORIDE 10 MEQ SR TABLET PO SCH (09:01)
[2018-09-01] MEDS: LABETALOL 200 MG TAB PO SCH ×2 (09:02→20:18)
[2018-09-01] MEDS: CARVedilol 6.25 MG TAB PO SCH ×2 (09:02→20:20)
[2018-09-01] MEDS: cloNIDine 0.2 MG TAB PO SCH ×3 (09:03→20:19)
[2018-09-01] MEDS: FUROSEMIDE 20 MG TAB PO SCH ×2 (09:03→16:23)
[2018-09-01] MEDS: FLUoxetine 20 MG CAP PO SCH (09:03)
[2018-09-01] MEDS: RANOLAZINE 500 MG ER TAB PO SCH ×2 (09:03→20:18)
[2018-09-01] MEDS: CLOPIDOGREL 75 MG TAB PO SCH (09:04)
[2018-09-01] MEDS: ATORVASTATIN 20 MG TAB PO SCH (09:04)
[2018-09-01] MEDS: ASPIRIN 81 MG ENTERIC TAB PO SCH (09:04)
[2018-09-01] MEDS: IRBESARTAN 150 MG TAB PO SCH (09:04)
[2018-09-01] MEDS: ISOSORBIDE MON. (IMDUR) 30 MG XR TAB PO SCH ×2 (09:05→20:17)
[2018-09-01] MEDS: DOCUSATE SODIUM 100 MG CAP PO SCH ×2 (09:05→20:20)
[2018-09-01] MEDS ORDERED: NITROGLYCERIN 0.4 MG/HR PATCH TD PRN (10:45)
--- NOTE | 2018-09-01 11:58 | IPNPDOC ---
Subjective Date Seen The patient was seen on 09/01/18. Time of service 9:30 AM Subjective Chief Complaint/HPI Back and chest pain. Events since last encounter The patient reports the chest pain is 4 out of 10 in severity today, which is less severe than it what it was previously. Objective Physical Examination General Exam: Positive: Alert, Cooperative, Other (morbidly obeses) Eye Exam: Positive: PERRLA, Conjunctiva & lids normal ENT Exam: Positive: Atraumatic, Mucous membr. moist/pink Neck Exam: Positive: Supple Chest Exam: Positive: Clear to auscultation Heart Exam: Positive: Rate Normal, Normal S1, Normal S2 Abdomen Exam: Positive: Normal bowel sounds, Soft Extremity Exam: Positive: Normal pulses, Swelling (LLE swollen for several weeks per patient) Skin Exam: Positive: Nl turgor and temperature Neuro Exam: Positive: Normal Speech, Strength at 5/5 X4 ext, Sensation Intact Psych Exam: Positive: Mental status NL, Mood NL, Oriented x 3 Assessment /Plan Assessment is a 48 yr old M w CAD (s/p 6 stents), Morbid obesity, hypertension, lymphadenopathy, DJD, neck herniated disks and PVD who is admitted for management of DVT/PE. 1.PE/DVT - not submassive as trops wnl and BNP only slightly elevated -Echo report still pending. -INR 0.99 Plan: f/u Echo report/ c/w Heparin drip and Warfarin & f/u INR daily until therapeutic 2.Thyroid nodule -findings of US and possible benign nature per Rads discussed w patient -TSH 4.0 but T4 and T3 wnl Plan:can f/u w endo on an out patient basis for repeat US in 6 months 3.CAD Plan: c/w current meds 4. HTN Plan: c/w current meds DVT prophylaxis with warfarin. Disposition pending therapeutic INR Problems (1) Pulmonary emboli Status: Acute (2) Thyroid nodule Status: Chronic Plan/VTE VTE Prophylaxis Ordered?: Yes (heparin and transition to warfarin) VS, I&O, 24H, Fishbone Vital Signs/I&O Vital Signs Date Time Temp Pulse Resp B/P (MAP) Pulse Ox O2 Delivery O2 Flow Rate FiO2 09/01/18 10:16 20 09/01/18 09:05 137/71 09/01/18 09:02 68 09/01/18 08:00 96.7 99 08/29/18 20:46 Room Air I&O- Last 24 Hours up to 6 AM 09/01/18 06:00 Intake Total 1100 ml Output Total 700 ml Balance 400 ml Laboratory Data 24H LABS Laboratory Tests 2 09/01/18 05:27: Immature Granulocyte % (Auto) 0.2, White Blood Count 5.3, Red Blood Count 3.83L, Hemoglobin 11.3L, Hematocrit 35.0L, Mean Corpuscular Volume 91.4, Mean Corpuscular Hemoglobin 29.5, Mean Corpuscular Hemoglobin Concent 32.3, Red Cell Distribution Width 14.7H, Platelet Count 165, Neutrophils (%) (Auto) 51.1, Lymphocytes (%) (Auto) 35.4, Monocytes (%) (Auto) 8.5H, Eosinophils (%) (Auto) 4 .0H, Basophils (%) (Auto) 0.8, Neutrophils # (Auto) 2.7, Lymphocytes # (Auto) 1.9, Monocytes # (Auto) 0.5, Eosinophils # (Auto) 0.2, Basophils # (Auto) 0.0, Nucleated Red Blood Cells % (auto) 0.0, Prothrombin Time 12.8, Prothromb Time International Ratio 0.99, Anion Gap 5L, Glomerular Filtration Rate > 60.0, Blood Urea Nitrogen 17, Creatinine 1.33H, Sodium Level 142, Potassium Level 4.2, Chloride Level 107, Carbon Dioxide Level 30, Calcium Level 8.3L CBC/BMP Laboratory Tests 09/01/18 05:27 Red Blood Count 3.83 L, Mean Corpuscular Volume 91.4, Mean Corpuscular Hemoglobin 29.5, Mean Corpuscular Hemoglobin Concent 32.3, Red Cell Distribution Width 14.7 H, Neutrophils (%) (Auto) 51.1, Lymphocytes (%) (Auto) 35.4, Monocytes (%) (Auto) 8.5 H, Eosinophils (%) (Auto) 4.0 H, Basophils (%) (Auto) 0.8, Neutrophils # (Auto) 2.7, Lymphocytes # (Auto) 1.9, Monocytes # (Auto) 0.5, Eosinophils # (Auto) 0.2, Basophils # (Auto) 0.0, Calcium Level 8.3 L JORGE L BERMUDEZ MD Sep 01, 2018 11:58
[2018-09-01 12:00] VITALS: BP 99/52
[2018-09-01 16:00] VITALS: BP_SYST 100; BP_SYST 127; BP_DIAS 54; BP_DIAS 75
[2018-09-01] MEDS: WARFARIN SOD 5 MG TAB PO SCH (16:23)
[2018-09-01 20:00] VITALS: BP 131/66
[2018-09-01] MEDS: ALPRAZolam 0.25 MG TAB PO PRN (20:20)
[2018-09-01] MEDS: amLODIPine 10 MG TAB PO SCH (20:21)
[2018-09-01] MEDS: **NOTE PATIENT COMMENT** MISC XX SCH (21:00)
[2018-09-02] VITALS (7 sets, daily range): BP systolic 100–146; BP diastolic 55–73
[2018-09-02] MEDS: NORCO, ANEXSIA 5/325MG TABLET (HYDROcodone/ACETAMINOPHEN) PO PRN ×5 (02:18→19:39)
[2018-09-02 05:30] LABS: BASO % 0.7 % (0.0-1.0); EOS # 0.3 10^3/uL (0.0-0.50); EOS % 4.9 % (0.0-3.0); HEMATOCRIT 35.9 % (42.0-52.0); HEMOGLOBIN 11.5 g/dl (13.5-17.5); LYMPH # 1.9 10^3/uL (1.5-4.5); LYMPH % 33.4 % (24.0-44.0); MEAN CORPUSCULAR HEMOGLOBIN 30.2 pg (27.0-33.0); MEAN CORPUSCULAR VOLUME 94.2 fl (80.0-96.0); MONO # 0.7 10^3/uL (0.0-0.8); MONO % 11.3 % (0.0-5.0); NEUTROPHILS # 2.8 10^3/uL (1.8-7.7); NEUTROPHILS % 49.2 % (36.0-66.0); PLATELET COUNT, AUTOMATED 156 10^3/uL (150-450); RED BLOOD COUNT 3.81 10^6/uL (4.30-6.10); WHITE BLOOD COUNT 5.7 10^3/uL (4.0-10.0)
[2018-09-02 05:41] LABS: INR 0.88; PROTHROMBIN TIME 11.6 SECONDS (11.8-14.0)
[2018-09-02 05:56] LABS: BLOOD UREA NITROGEN 17 MG/DL (7-18); CALCIUM LEVEL 8.9 MG/DL (8.5-10.1); CARBON DIOXIDE LEVEL 31 MEQ/L (21-32); CHLORIDE LEVEL 106 MEQ/L (98-107); CREATININE FOR GFR 1.18 MG/DL (0.70-1.30); GLOMERULAR FILTRATION RATE > 60.0 (>60); GLUCOSE, FASTING 130 MG/DL (70-100); POTASSIUM SERUM 4.5 MEQ/L (3.5-5.1); SODIUM LEVEL 139 MEQ/L (136-145)
--- NOTE | 2018-09-02 07:03 | ECHO ---
DATE OF STUDY: 08/30/2018 REFERRING PHYSICIAN: Dr. Santhosh Hinton INDICATION: Chest pain unspecified. HEIGHT: 175 cm. WEIGHT: 188 kg. 2-D MEASUREMENTS: Aortic root: 3.2 cm Ventricular septum: 1.17 cm Posterior wall: 0.94 cm Left ventricle diastole: 4.9 cm LVOT: 2.0 cm Left atrium: 4.0 cm Left atrial volume index: 21 DOPPLER MEASUREMENTS: Aortic valve velocity: 128 cm/sec LVOT velocity: 90.2 cm/sec LVOT VTI: 21.2 cm Mitral E velocity: 73.1 cm/sec Mitral A velocity: 58.2 cm/sec Mitral deceleration time: 211 ms MITRAL ANNULAR TISSUE DOPPLER: E prime lateral: 7.0 cm/sec E prime septal: 8.5 cm/sec DESCRIPTION: The rhythm was sinus. This was a moderately technically difficult echocardiogram. This was a 2-D, M-mode, color flow Doppler and pulse wave Doppler examination and included mitral annular tissue Doppler. CONCLUSIONS: 1. Normal left ventricle internal dimensions and wall thickness. Normal regional LV wall motion and wall thickening. Normal LV systolic function. LVEF 60% by visual estimate. 2. No pericardial effusion. 3. Otherwise unremarkable appearing echocardiogram Doppler findings. 4. Moderately technically difficult echocardiogram.
[2018-09-02] MEDS: RANOLAZINE 500 MG ER TAB PO SCH ×2 (08:19→21:16)
[2018-09-02] MEDS: POTASSIUM CHLORIDE 10 MEQ SR TABLET PO SCH (08:19)
[2018-09-02] MEDS: ASPIRIN 81 MG ENTERIC TAB PO SCH (08:19)
[2018-09-02] MEDS: LABETALOL 200 MG TAB PO SCH ×2 (08:20→21:15)
[2018-09-02] MEDS: cloNIDine 0.2 MG TAB PO SCH ×3 (08:20→21:17)
[2018-09-02] MEDS: FLUoxetine 20 MG CAP PO SCH (08:21)
[2018-09-02] MEDS: IRBESARTAN 150 MG TAB PO SCH (08:21)
[2018-09-02] MEDS: CARVedilol 6.25 MG TAB PO SCH ×2 (08:21→21:16)
[2018-09-02] MEDS: CLOPIDOGREL 75 MG TAB PO SCH (08:22)
[2018-09-02] MEDS: ATORVASTATIN 20 MG TAB PO SCH (08:22)
[2018-09-02] MEDS: ISOSORBIDE MON. (IMDUR) 30 MG XR TAB PO SCH ×2 (08:22→21:17)
[2018-09-02] MEDS: FUROSEMIDE 20 MG TAB PO SCH ×2 (08:22→16:16)
[2018-09-02] MEDS: DOCUSATE SODIUM 100 MG CAP PO SCH ×2 (09:00→21:18)
[2018-09-02] MEDS: ALPRAZolam 0.25 MG TAB PO PRN (10:29)
[2018-09-02] MEDS: ENOXAPARIN 150 MG/ML SYR (J1650) SC SCH ×2 (11:34→21:19)
[2018-09-02] MEDS: WARFARIN SOD 5 MG TAB PO SCH (16:17)
--- NOTE | 2018-09-02 18:19 | IPNPDOC ---
Subjective Date Seen The patient was seen on 09/02/18. Time of service 9:40 AM Subjective Chief Complaint/HPI chest pain Events since last encounter The patient reports that his chest pain has reduced to 3 out of 10 in severity today. Objective Physical Examination General Exam: Positive: Alert, Cooperative, Other (morbidly obeses) Eye Exam: Positive: PERRLA, Conjunctiva & lids normal ENT Exam: Positive: Atraumatic, Mucous membr. moist/pink Neck Exam: Positive: Supple Chest Exam: Positive: Clear to auscultation Heart Exam: Positive: Rate Normal, Normal S1, Normal S2 Abdomen Exam: Positive: Normal bowel sounds, Soft Extremity Exam: Positive: Normal pulses, Swelling (LLE swollen for several weeks per patient) Skin Exam: Positive: Nl turgor and temperature Neuro Exam: Positive: Normal Speech, Strength at 5/5 X4 ext, Sensation Intact Psych Exam: Positive: Mental status NL, Mood NL, Oriented x 3 Assessment /Plan Assessment is a 48 yr old M w CAD (s/p 6 stents), Morbid obesity, hypertension, lymphadenopathy, DJD, neck herniated disks and PVD who is admitted for management of DVT/PE. 1.PE/DVT - not submassive as trops wnl and BNP only slightly elevated -Echo report still pending. -INR. INR still subtherapeutic -The echo report was unremarkable. There were no mentions of right heart strain Plan: c/w Lovenox for bridging and Warfarin & f/u INR daily until therapeutic 2.Thyroid nodule -findings of US and possible benign nature per Rads discussed w patient -TSH 4.0 but T4 and T3 wnl Plan:can f/u w endo on an out patient basis for repeat US in 6 months 3.CAD Plan: c/w current meds 4. HTN Plan: c/w current meds DVT prophylaxis with warfarin. Problems (1) Pulmonary emboli Status: Acute (2) Thyroid nodule Status: Chronic Plan/VTE VTE Prophylaxis Ordered?: Yes (heparin and transition to warfarin) VTE Exclusion Mechanical Proph: Mark Lower Ex Surgery VS, I&O, 24H, Fishbone Vital Signs/I&O Vital Signs Date Time Temp Pulse Resp B/P (MAP) Pulse Ox O2 Delivery O2 Flow Rate FiO2 09/02/18 16:17 107/59 7/25/19 16:00 96.9 61 18 99 08/29/18 20:46 Room Air I&O- Last 24 Hours up to 6 AM 09/02/18 05:59 Intake Total 2070 ml Output Total 1500 ml Balance 570 ml Laboratory Data 24H LABS Laboratory Tests 2 09/02/18 05:08: Immature Granulocyte % (Auto) 0.5, White Blood Count 5.7, Red Blood Count 3.81L, Hemoglobin 11.5L, Hematocrit 35.9L, Mean Corpuscular Volume 94.2, Mean Corpuscular Hemoglobin 30.2, Mean Corpuscular Hemoglobin Concent 32.0, Red Cell Distribution Width 14.6H, Platelet Count 156, Neutrophils (%) (Auto) 49.2, Lymphocytes (%) (Auto) 33.4, Monocytes (%) (Auto) 11.3H, Eosinophils (%) (Auto) 4.9H, Basophils (%) (Auto) 0.7, Neutrophils # (Auto) 2.8, Lymphocytes # (Auto) 1.9, Monocytes # (Auto) 0.7, Eosinophils # (Auto) 0.3, Basophils # (Auto) 0.0, Nucleated Red Blood Cells % (auto) 0.0, Prothrombin Time 11.6L, Prothromb Time International Ratio 0.88, Anion Gap 2L, Glomerular Filtration Rate > 60.0, Blood Urea Nitrogen 17, Creatinine 1.18, Sodium Level 139, Potassium Level 4.5, Chloride Level 106, Carbon Dioxide Level 31, Calcium Level 8.9 CBC/BMP Laboratory Tests 09/02/18 05:08 Red Blood Count 3.81 L, Mean Corpuscular Volume 94.2, Mean Corpuscular Hemoglobin 30.2, Mean Corpuscular Hemoglobin Concent 32.0, Red Cell Distribution Width 14.6 H, Neutrophils (%) (Auto) 49.2, Lymphocytes (%) (Auto) 33.4, Monocytes (%) (Auto) 11.3 H, Eosinophils (%) (Auto) 4.9 H, Basophils (%) (Auto) 0.7, Neutrophils # (Auto) 2.8, Lymphocytes # (Auto) 1.9, Monocytes # (Auto) 0.7, Eosinophils # (Auto) 0.3, Basophils # (Auto) 0.0, Calcium Level 8.9 JORGE L BERMUDEZ MD Sep 02, 2018 18:19
[2018-09-02] MEDS: **NOTE PATIENT COMMENT** MISC XX SCH (21:00)
[2018-09-02] MEDS: amLODIPine 10 MG TAB PO SCH (21:18)
[2018-09-03] VITALS: BP 116/63
[2018-09-03] MEDS: ALPRAZolam 0.25 MG TAB PO PRN
[2018-09-03] MEDS: NORCO, ANEXSIA 5/325MG TABLET (HYDROcodone/ACETAMINOPHEN) PO PRN ×6 (00:01→21:58)
[2018-09-03 05:33] LABS: BASO % 0.5 % (0.0-1.0); EOS # 0.3 10^3/uL (0.0-0.50); EOS % 5.5 % (0.0-3.0); HEMATOCRIT 36.8 % (42.0-52.0); HEMOGLOBIN 11.3 g/dl (13.5-17.5); LYMPH % 35.9 % (24.0-44.0); MEAN CORPUSCULAR HEMOGLOBIN 28.9 pg (27.0-33.0); MEAN CORPUSCULAR HGB CONC 30.7 g/dl (32.0-36.5); MEAN CORPUSCULAR VOLUME 94.1 fl (80.0-96.0); MONO # 0.5 10^3/uL (0.0-0.8); MONO % 9.3 % (0.0-5.0); NEUTROPHILS # 2.6 10^3/uL (1.8-7.7); NEUTROPHILS % 48.4 % (36.0-66.0); PLATELET COUNT, AUTOMATED 161 10^3/uL (150-450); RED BLOOD COUNT 3.91 10^6/uL (4.30-6.10); WHITE BLOOD COUNT 5.5 10^3/uL (4.0-10.0)
[2018-09-03 05:41] LABS: INR 1.18; PROTHROMBIN TIME 14.8 SECONDS (11.8-14.0)
[2018-09-03 05:46] LABS: CALCIUM LEVEL 8.3 MG/DL (8.5-10.1); CREATININE FOR GFR 1.35 MG/DL (0.70-1.30); GLOMERULAR FILTRATION RATE 59.8 (>60); POTASSIUM SERUM 4.3 MEQ/L (3.5-5.1)
[2018-09-03 07:45] VITALS: BP 145/81
[2018-09-03] MEDS: CARVedilol 6.25 MG TAB PO SCH ×2 (09:51→22:02)
[2018-09-03] MEDS: ASPIRIN 81 MG ENTERIC TAB PO SCH (09:52)
[2018-09-03] MEDS: RANOLAZINE 500 MG ER TAB PO SCH ×2 (09:52→21:56)
[2018-09-03] MEDS: FLUoxetine 20 MG CAP PO SCH (09:53)
[2018-09-03] MEDS: CLOPIDOGREL 75 MG TAB PO SCH (09:53)
[2018-09-03] MEDS: cloNIDine 0.2 MG TAB PO SCH ×3 (09:53→21:57)
[2018-09-03] MEDS: ATORVASTATIN 20 MG TAB PO SCH (09:53)
[2018-09-03] MEDS: FUROSEMIDE 20 MG TAB PO SCH ×2 (09:53→16:24)
[2018-09-03] MEDS: DOCUSATE SODIUM 100 MG CAP PO SCH ×2 (09:53→21:57)
[2018-09-03] MEDS: POTASSIUM CHLORIDE 10 MEQ SR TABLET PO SCH (09:54)
[2018-09-03] MEDS: ISOSORBIDE MON. (IMDUR) 30 MG XR TAB PO SCH ×2 (09:54→22:01)
[2018-09-03] MEDS: ENOXAPARIN 150 MG/ML SYR (J1650) SC SCH ×2 (09:55→22:02)
[2018-09-03] MEDS: LABETALOL 200 MG TAB PO SCH ×2 (09:55→21:59)
[2018-09-03] MEDS: IRBESARTAN 150 MG TAB PO SCH (09:55)
[2018-09-03 12:00] VITALS: BP 107/56
[2018-09-03 16:00] VITALS: BP 141/76
[2018-09-03] MEDS: WARFARIN SOD 5 MG TAB PO SCH (16:25)
--- NOTE | 2018-09-03 19:22 | IPNPDOC ---
Subjective Date Seen The patient was seen on 09/03/18. Time of service 4:20 PM Subjective Chief Complaint/HPI chest pain Events since last encounter The patient reports his chest pain is still 3 out of 4 in severity, but he has no other acute complaints, but otherwise has no acute c/o. Objective Physical Examination General Exam: Positive: Alert, Cooperative, Other (morbidly obeses) Eye Exam: Positive: PERRLA, Conjunctiva & lids normal ENT Exam: Positive: Atraumatic, Mucous membr. moist/pink Neck Exam: Positive: Supple Chest Exam: Positive: Clear to auscultation Heart Exam: Positive: Rate Normal, Normal S1, Normal S2 Abdomen Exam: Positive: Normal bowel sounds, Soft Extremity Exam: Positive: Normal pulses, Swelling (LLE swollen for several weeks per patient) Skin Exam: Positive: Nl turgor and temperature Neuro Exam: Positive: Normal Speech, Strength at 5/5 X4 ext, Sensation Intact Psych Exam: Positive: Mental status NL, Mood NL, Oriented x 3 Assessment /Plan Assessment is a 48 yr old M w CAD (s/p 6 stents), Morbid obesity, hypertension, lymphadenopathy, DJD, neck herniated disks and PVD who is admitted for management of DVT/PE. 1.PE/DVT - not submassive as trops wnl and BNP only slightly elevated -Echo report still pending. -INR. INR still subtherapeutic -The echo report was unremarkable. There were no mentions of right heart strain Plan: c/w Lovenox for bridging and increase warfarin from 10-15 mg daily & f/u INR daily until therapeutic / will refer him to [facility] on an out pt basis to discuss if his medication regimen can be simplified bc he is also on DAPT 2.Thyroid nodule -findings of US and possible benign nature per Rads discussed w patient -TSH 4.0 but T4 and T3 wnl Plan:can f/u w endo on an out patient basis for repeat US in 6 months 3.CAD Plan: c/w current meds 4. Chronic HTN. Blood pressures have been labile Plan: c/w current meds DVT prophylaxis with Lovenox and warfarin Problems (1) Pulmonary emboli Status: Acute (2) Thyroid nodule Status: Chronic Plan/VTE VTE Prophylaxis Ordered?: Yes (heparin and transition to warfarin) VTE Exclusion Mechanical Proph: Mark Lower Ex Surgery VS, I&O, [facility] Vital Signs/I&O Vital Signs Date Time Temp Pulse Resp B/P (MAP) Pulse Ox O2 Delivery O2 Flow Rate FiO2 09/03/18 18:04 18 09/03/18 16:24 141/76 09/03/18 16:00 97.0 60 100 08/29/18 20:46 Room Air I&O- Last 24 Hours up to 6 AM 09/03/18 06:00 Intake Total 1680 ml Output Total 1000 ml Balance 680 ml Laboratory Data 24H LABS Laboratory Tests 2 09/03/18 04:55: Immature Granulocyte % (Auto) 0.4, White Blood Count 5.5, Red Blood Count 3.91L, Hemoglobin 11.3L, Hematocrit 36.8L, Mean Corpuscular Volume 94.1, Mean Corpuscular Hemoglobin 28.9, Mean Corpuscular Hemoglobin Concent 30.7L, Red Cell Distribution Width 14.8H, Platelet Count 161, Neutrophils (%) (Auto) 48.4, Lymphocytes (%) (Auto) 35.9, Monocytes (%) (Auto) 9.3H, Eosinophils (%) (Auto) 5.5H, Basophils (%) (Auto) 0.5, Neutrophils # (Auto) 2.6, Lymphocytes # (Auto) 2.0, Monocytes # (Auto) 0.5, Eosinophils # (Auto) 0.3, Basophils # (Auto) 0.0, Nucleated Red Blood Cells % (auto) 0.0, Prothrombin Time 14.8H, Prothromb Time International Ratio 1.18, Anion Gap 4L, Glomerular Filtration Rate 59.8L, Blood Urea Nitrogen 19H, Creatinine 1.35H, Sodium Level 142, Potassium Level 4.3, Chloride Level 107, Carbon Dioxide Level 31, Calcium Level 8.3L CBC/BMP Laboratory Tests 09/03/18 04:55 Red Blood Count 3.91 L, Mean Corpuscular Volume 94.1, Mean Corpuscular Hemoglobin 28.9, Mean Corpuscular Hemoglobin Concent 30.7 L, Red Cell Distribution Width 14.8 H, Neutrophils (%) (Auto) 48.4, Lymphocytes (%) (Auto) 35.9, Monocytes (%) (Auto) 9.3 H, Eosinophils (%) (Auto) 5.5 H, Basophils (%) (Auto) 0.5, Neutrophils # (Auto) 2.6, Lymphocytes # (Auto) 2.0, Monocytes # (Auto) 0.5, Eosinophils # (Auto) 0.3, Basophils # (Auto) 0.0, Calcium Level 8.3 L JORGE L BERMUDEZ MD Sep 03, 2018 19:22
[2018-09-03 20:00] VITALS: BP 123/59
[2018-09-03] MEDS: **NOTE PATIENT COMMENT** MISC XX SCH (21:00)
[2018-09-03] MEDS: amLODIPine 10 MG TAB PO SCH (22:00)
[2018-09-04] VITALS: BP 116/60
[2018-09-04] MEDS: ALPRAZolam 0.25 MG TAB PO PRN (00:56)
[2018-09-04] MEDS: NORCO, ANEXSIA 5/325MG TABLET (HYDROcodone/ACETAMINOPHEN) PO PRN ×5 (01:54→20:39)
[2018-09-04 04:00] VITALS: BP 109/59
[2018-09-04 05:05] LABS: BASO % 0.8 % (0.0-1.0); EOS # 0.3 10^3/uL (0.0-0.50); EOS % 5.1 % (0.0-3.0); HEMATOCRIT 35.4 % (42.0-52.0); HEMOGLOBIN 11.2 g/dl (13.5-17.5); LYMPH # 1.7 10^3/uL (1.5-4.5); LYMPH % 32.7 % (24.0-44.0); MEAN CORPUSCULAR HEMOGLOBIN 30.1 pg (27.0-33.0); MEAN CORPUSCULAR HGB CONC 31.6 g/dl (32.0-36.5); MEAN CORPUSCULAR VOLUME 95.2 fl (80.0-96.0); MONO # 0.5 10^3/uL (0.0-0.8); MONO % 9.2 % (0.0-5.0); NEUTROPHILS # 2.8 10^3/uL (1.8-7.7); NEUTROPHILS % 51.8 % (36.0-66.0); PLATELET COUNT, AUTOMATED 152 10^3/uL (150-450); RED BLOOD COUNT 3.72 10^6/uL (4.30-6.10); WHITE BLOOD COUNT 5.3 10^3/uL (4.0-10.0)
[2018-09-04 05:21] LABS: INR 1.44; PROTHROMBIN TIME 17.3 SECONDS (11.8-14.0)
[2018-09-04 05:26] LABS: CALCIUM LEVEL 8.8 MG/DL (8.5-10.1); CREATININE FOR GFR 1.4 MG/DL (0.70-1.30); GLOMERULAR FILTRATION RATE 57.3 (>60); POTASSIUM SERUM 4.2 MEQ/L (3.5-5.1)
[2018-09-04 08:00] VITALS: BP 118/57
[2018-09-04] MEDS: LABETALOL 200 MG TAB PO SCH ×2 (08:16→20:39)
[2018-09-04] MEDS: FLUoxetine 20 MG CAP PO SCH (08:16)
[2018-09-04] MEDS: RANOLAZINE 500 MG ER TAB PO SCH ×2 (08:16→20:38)
[2018-09-04] MEDS: ATORVASTATIN 20 MG TAB PO SCH (08:16)
[2018-09-04] MEDS: IRBESARTAN 150 MG TAB PO SCH (08:17)
[2018-09-04] MEDS: DOCUSATE SODIUM 100 MG CAP PO SCH ×2 (08:17→20:38)
[2018-09-04] MEDS: ASPIRIN 81 MG ENTERIC TAB PO SCH (08:17)
[2018-09-04] MEDS: ISOSORBIDE MON. (IMDUR) 30 MG XR TAB PO SCH ×2 (08:17→20:40)
[2018-09-04] MEDS: FUROSEMIDE 20 MG TAB PO SCH ×2 (08:17→16:41)
[2018-09-04] MEDS: POTASSIUM CHLORIDE 10 MEQ SR TABLET PO SCH (08:18)
[2018-09-04] MEDS: CLOPIDOGREL 75 MG TAB PO SCH (08:18)
[2018-09-04] MEDS: CARVedilol 6.25 MG TAB PO SCH ×2 (08:18→20:40)
[2018-09-04] MEDS: cloNIDine 0.2 MG TAB PO SCH ×3 (08:18→20:40)
[2018-09-04] MEDS: ENOXAPARIN 150 MG/ML SYR (J1650) SC SCH (11:11)
[2018-09-04 12:00] VITALS: BP 103/55
--- NOTE | 2018-09-04 15:52 | IPNPDOC ---
Subjective Date Seen The patient was seen on 09/04/18. Time of service 9:40 AM Subjective Chief Complaint/HPI Chest pain Events since last encounter The patient reports that this chest pain has decreased to 2 out of 10 in severity. He has no other acute complaints Objective Physical Examination General Exam: Positive: Alert, Cooperative, Other (morbidly obeses) Eye Exam: Positive: PERRLA, Conjunctiva & lids normal ENT Exam: Positive: Atraumatic, Mucous membr. moist/pink Neck Exam: Positive: Supple Chest Exam: Positive: Clear to auscultation Heart Exam: Positive: Rate Normal, Normal S1, Normal S2 Abdomen Exam: Positive: Normal bowel sounds, Soft Extremity Exam: Positive: Normal pulses, Swelling (LLE swollen for several weeks per patient) Skin Exam: Positive: Nl turgor and temperature Neuro Exam: Positive: Normal Speech, Strength at 5/5 X4 ext, Sensation Intact Psych Exam: Positive: Mental status NL, Mood NL, Oriented x 3 Assessment /Plan Assessment is a 48 yr old M w CAD (s/p 6 stents), Morbid obesity, hypertension, lymphadenopathy, DJD, neck herniated disks and PVD who is admitted for manag ement of DVT/PE. 1.PE/DVT Was not submassive because the echo reportdid not mention right heart strain, ad BMP and troponin were within normal limits The INR is trending up Plan: discontinue Lovenox, continue with 15 mg of warfarin daily and following INR daily / will refer him to [facility] on an out pt basis to discuss if his medication regimen can be simplified bc he is also on DAPT 2.Thyroid nodule -findings of US and possible benign nature per Rads discussed w patient -TSH 4.0 but T4 and T3 wnl Plan:can f/u w endo on an out patient basis for repeat US in 6 months 3.CAD Plan: c/w current meds 4. Chronic HTN. Blood pressures have been labile Plan: c/w current meds 5. Morbid obesity. BMI 64.1. Plan: He can follow up with his PCP to discuss diet and referral for bariatric surgery DVT prophylaxis with Lovenox and warfarin Problems (1) Pulmonary emboli Status: Acute (2) Thyroid nodule Status: Chronic Plan/VTE VTE Prophylaxis Ordered?: Yes (heparin and transition to warfarin) VTE Exclusion Mechanical Proph: Mark Lower Ex Surgery VS, I&O, 24H, Fishbone Vital Signs/I&O Vital Signs Date Time Temp Pulse Resp B/P (MAP) Pulse Ox O2 Delivery O2 Flow Rate FiO2 09/04/18 13:12 17 09/04/18 12:00 97.0 60 103/55 (71) 99 08/29/18 20:46 Room Air I&O- Last 24 Hours up to 6 AM 09/04/18 06:00 Intake Total 1620 ml Output Total 750 ml Balance 870 ml Laboratory Data 24H LABS Laboratory Tests 2 09/04/18 04:55: Immature Granulocyte % (Auto) 0.4, White Blood Count 5.3, Red Blood Count 3.72L, Hemoglobin 11.2L, Hematocrit 35.4L, Mean Corpuscular Volume 95.2, Mean Corpuscular Hemoglobin 30.1, Mean Corpuscular Hemoglobin Concent 31.6L, Red Cell Distribution Width 14.8H, Platelet Count 152, Neutrophils (%) (Auto) 51.8, Lymphocytes (%) (Auto) 32.7, Monocytes (%) (Auto) 9.2H, Eosinophils (%) (Auto) 5.1H, Basophils (%) (Auto) 0.8, Neutrophils # (Auto) 2.8, Lymphocytes # (Auto) 1.7, Monocytes # (Auto) 0.5, Eosinophils # (Auto) 0.3, Basophils # (Auto) 0.0, Nucleated Red Blood Cells % (auto) 0.0, Prothrombin Time 17.3H, Prothromb Time International Ratio 1.44, Anion Gap 2L, Glomerular Filtration Rate 57.3L, Blood Urea Nitrogen 20H, Creatinine 1.40H, Sodium Level 142, Potassium Level 4.2, Chloride Level 106, Carbon Dioxide Level 34H, Calcium Level 8.8 CBC/BMP Laboratory Tests 09/04/18 04:55 Red Blood Count 3.72 L, Mean Corpuscular Volume 95.2, Mean Corpuscular Hemoglobin 30.1, Mean Corpuscular Hemoglobin Concent 31.6 L, Red Cell Distribution Width 14.8 H, Neutrophils (%) (Auto) 51.8, Lymphocytes (%) (Auto) 32.7, Monocytes (%) (Auto) 9.2 H, Eosinophils (%) (Auto) 5.1 H, Basophils (%) (Auto) 0.8, Neutrophils # (Auto) 2.8, Lymphocytes # (Auto) 1.7, Monocytes # (Auto) 0.5, Eosinophils # (Auto) 0.3, Basophils # (Auto) 0.0, Calcium Level 8.8 JORGE L BERMUDEZ MD Sep 04, 2018 15:52
[2018-09-04 16:00] VITALS: BP 131/63
[2018-09-04] MEDS: WARFARIN SOD 5 MG TAB PO SCH (16:40)
[2018-09-04 20:00] VITALS: BP 151/75
[2018-09-04] MEDS: amLODIPine 10 MG TAB PO SCH (20:38)
[2018-09-04] MEDS: **NOTE PATIENT COMMENT** MISC XX SCH ×2 (20:40→20:43)
[2018-09-04] MEDS ORDERED: diphenhydrAMINE 25 MG CAP PO SCH (21:00)
[2018-09-05] VITALS: BP 117/60
[2018-09-05 04:00] VITALS: BP 113/57
[2018-09-05 05:18] LABS: BASO # 0.1 10^3/uL (0.0-0.2); BASO % 1.1 % (0.0-1.0); EOS # 0.3 10^3/uL (0.0-0.50); EOS % 6.5 % (0.0-3.0); HEMATOCRIT 34.4 % (42.0-52.0); HEMOGLOBIN 10.9 g/dl (13.5-17.5); LYMPH # 1.5 10^3/uL (1.5-4.5); LYMPH % 32.9 % (24.0-44.0); MEAN CORPUSCULAR HEMOGLOBIN 30.1 pg (27.0-33.0); MEAN CORPUSCULAR HGB CONC 31.7 g/dl (32.0-36.5); MONO # 0.6 10^3/uL (0.0-0.8); MONO % 12.1 % (0.0-5.0); NEUTROPHILS # 2.2 10^3/uL (1.8-7.7); NEUTROPHILS % 47.2 % (36.0-66.0); PLATELET COUNT, AUTOMATED 148 10^3/uL (150-450); RED BLOOD COUNT 3.62 10^6/uL (4.30-6.10); WHITE BLOOD COUNT 4.6 10^3/uL (4.0-10.0)
[2018-09-05] MEDS: NORCO, ANEXSIA 5/325MG TABLET (HYDROcodone/ACETAMINOPHEN) PO PRN ×4 (05:21→17:53)
[2018-09-05 05:47] LABS: CALCIUM LEVEL 8.3 MG/DL (8.5-10.1); CREATININE FOR GFR 1.41 MG/DL (0.70-1.30); GLOMERULAR FILTRATION RATE 56.9 (>60); POTASSIUM SERUM 4.7 MEQ/L (3.5-5.1)
[2018-09-05 06:29] LABS: INR 1.93; PROTHROMBIN TIME 21.8 SECONDS (11.8-14.0)
[2018-09-05 08:00] VITALS: BP 132/80
[2018-09-05] MEDS: DOCUSATE SODIUM 100 MG CAP PO SCH (08:33)
[2018-09-05] MEDS: CLOPIDOGREL 75 MG TAB PO SCH (08:33)
[2018-09-05] MEDS: IRBESARTAN 150 MG TAB PO SCH (08:33)
[2018-09-05] MEDS: POTASSIUM CHLORIDE 10 MEQ SR TABLET PO SCH (08:34)
[2018-09-05] MEDS: ISOSORBIDE MON. (IMDUR) 30 MG XR TAB PO SCH (08:34)
[2018-09-05] MEDS: CARVedilol 6.25 MG TAB PO SCH (08:34)
[2018-09-05] MEDS: ATORVASTATIN 20 MG TAB PO SCH (08:34)
[2018-09-05] MEDS: RANOLAZINE 500 MG ER TAB PO SCH (08:35)
[2018-09-05] MEDS: LABETALOL 200 MG TAB PO SCH (08:35)
[2018-09-05] MEDS: FUROSEMIDE 20 MG TAB PO SCH ×2 (08:35→17:52)
[2018-09-05] MEDS: ASPIRIN 81 MG ENTERIC TAB PO SCH (08:35)
[2018-09-05] MEDS: cloNIDine 0.2 MG TAB PO SCH ×2 (08:36→17:52)
[2018-09-05] MEDS: FLUoxetine 20 MG CAP PO SCH (08:36)
[2018-09-05 12:00] VITALS: BP 111/58
[2018-09-05 16:00] VITALS: BP 138/78
[2018-09-05 16:09] LABS: INR 2.26; PROTHROMBIN TIME 24.8 SECONDS (11.8-14.0)
[2018-09-05] MEDS ORDERED: WARF-23 PO (16:42)
--- NOTE | 2018-09-05 17:19 | DS.PDOC ---
Discharge Summary General Date of Admission Aug 29, 2018 at 20:15 Date of Discharge 09/05/18 time of service 810am Primary Care Physician: Ramez Barcenas MD Attending Physician: JORGE L BERMUDEZ MD Discharge Summary PROCEDURES PERFORMED DURING STAY: [None]. ADMITTING DIAGNOSES: 1. DVT/PE. 2. Thyroid nodule DISCHARGE DIAGNOSES: 1.DVT/PE. COMPLICATIONS/CHIEF COMPLAINT: Pulmonary Emboli. HISTORY OF PRESENT ILLNESS: This is a 48-year-old male who per HPI was admitted on the with complaints of 2 day duration chest pain that radiated between both shoulders and towards his neck. Associated symptoms included dyspnea. He denied syncope, nausea or vomiting. He recently had 6 stents placed in his heart at [facility] in July [address] of the chest done in the ED, found a thrombus in the marginal left pulmonary artery, possible thrombus along the margins of the right pulmonary artery and small pulmonary emboli descending into the pulmonary artery branches. He was also noted to have a 1.3 cm left thyroid nodule with calcification. HOSPITAL COURSE: He was admitted to the general medical floor, started on heparin and transitioned to warfarin. The rest of the workup including an echocardiogram, troponins, and BNP, did not reveal signs of submassive PE. He had an ultrasound of the thyroid which showed 2 nodules in the left lobe with calcifications that were probably benign. Recommendations were made to follow-up ultrasound in 6 months to confirm that the nodules were stable in size. He was re-examined on September 05 at 8:10 AM and reported that his chest pain had almost completely resolved. His INR was 2.26. He is instructed to follow-up with his primary care physician to monitor his INR this week, follow up with an financial developer to monitor the thyroid nodule, repeat an ultrasound of the thyroid in 6 months, continue taking warfarin as instructed, and talk to his primary care physician about referral to hematology to modify his anti-coagul ants if possible. DISCHARGE MEDICATIONS: Please see below. ALLERGIES: Please see below. PHYSICAL EXAMINATION ON DISCHARGE: VITAL SIGNS: Please see below. GENERAL: Well-nourished, well-developed, no acute distress HEENT:. Normocephalic, atraumatic NECK:. Short CARDIOVASCULAR EXAMINATION: Regular rate and rhythm. No murmurs, rubs or gallops RESPIRATORY EXAMINATION: Clear to auscultation bilaterally on room air EXTREMITIES: Left lower extremity more swollen than right cord to the patient, this is chronic NEUROLOGICAL EXAMINATION: CN II to 12 grossly intact, speech is not dysarthric PSYCHIATRIC EXAMINATION:, Oriented to person, place and time, able to understand and follow commands LABORATORY DATA: Please see below. IMAGING:. See above PROGNOSIS:. Fair ACTIVITY: [As tolerated]. DIET: Cardiac DISCHARGE PLAN: 1. Follow-up with PCP to check INR this week and to discuss referral to hem atology in the future. 2. Follow-up with endocrinology to monitor TFTs and follow-up repeat ultrasound of the thyroid DISPOSITION: . DISCHARGE INSTRUCTIONS: 1.. See above. ITEMS TO FOLLOWUP ON ON OUTPATIENT: 1. INR 2. TFTs and thyroid ultrasound. 3. Reduction of polypharmacy. DISCHARGE CONDITION: [Stable]. TIME SPENT ON DISCHARGE: Greater than, 20 minutes. Vital Signs/I&Os Vital Signs Date Time Temp Pulse Resp B/P (MAP) Pulse Ox O2 Delivery O2 Flow Rate FiO2 09/05/18 14:06 20 09/05/18 12:00 97.1 60 111/58 (75) 98 I&O- Last 24 Hours up to 6 AM 09/05/18 06:00 Intake Total 1220 ml Output Total 900 ml Balance 320 ml Laboratory Data Labs 24H Laboratory Tests 2 09/05/18 05:10: Immature Granulocyte % (Auto) 0.2, White Blood Count 4.6, Red Blood Count 3.62L, Hemoglobin 10.9L, Hematocrit 34.4L, Mean Corpuscular Volume 95.0, Mean Cor puscular Hemoglobin 30.1, Mean Corpuscular Hemoglobin Concent 31.7L, Red Cell Distribution Width 14.7H, Platelet Count 148L, Neutrophils (%) (Auto) 47.2, Lymphocytes (%) (Auto) 32.9, Monocytes (%) (Auto) 12.1H, Eosinophils (%) (Auto) 6.5H, Basophils (%) (Auto) 1.1H, Neutrophils # (Auto) 2.2, Lymphocytes # (Auto) 1.5, Monocytes # (Auto) 0.6, Eosinophils # (Auto) 0.3, Basophils # (Auto) 0.1, Nucleated Red Blood Cells % (auto) 0.0, Anion Gap 3L, Glomerular Filtration Rate 56.9L, Blood Urea Nitrogen 24H, Creatinine 1.41H, Sodium Level 142, Potassium Level 4.7, Chloride Level 107, Carbon Dioxide Level 32, Calcium Level 8.3L 09/05/18 05:52: Prothrombin Time 21.8H, Prothromb Time International Ratio 1.93 09/05/18 15:02: Prothrombin Time 24.8H, Prothromb Time International Ratio 2.26 CBC/BMP Laboratory Tests 09/05/18 05:10 Red Blood Count 3.62 L, Mean Corpuscular Volume 95.0, Mean Corpuscular Hemoglobin 30.1, Mean Corpuscular Hemoglobin Concent 31.7 L, Red Cell Distribution Width 14.7 H, Neutrophils (%) (Auto) 47.2, Lymphocytes (%) (Auto) 32.9, Monocytes (%) (Auto) 12.1 H, Eosinophils (%) (Auto) 6.5 H, Basophils (%) (Auto) 1.1 H, Neutrophils # (Auto) 2.2, Lymphocytes # (Auto) 1.5, Monocytes # (Auto) 0.6, Eosinophils # (Auto) 0.3, Basophils # (Auto) 0.1, Calcium Level 8.3 L Discharge Medications Scheduled Amlodipine Besylate (Norvasc) 10 Mg Tablet, 10 MG PO QHS, (Reported) Aspirin (Aspir 81) 81 Mg Tablet.dr, 81 MG PO DAILY, (Reported) Atorvastatin Calcium (Atorvastatin Calcium) 40 Mg Tablet, 40 MG PO DAILY, (Reported) Carvedilol (Carvedilol) 6.25 Mg Tablet, 6.25 MG PO BID, (Reported) Clonidine HCl (Clonidine HCl) 0.2 Mg Tablet, 0.2 MG PO TID, (Reported) Clopidogrel Bisulfate (Plavix) 75 Mg Tablet, 75 MG PO DAILY, (Reported) Ergocalciferol (Vitamin D2) (Drisdol) 50,000 Unit Capsule, 50,000 UNIT PO 1XWK, (Reported) FR[place]YS Fluoxetine Hcl (Fluoxetine HCl) 40 Mg Capsule, 40 MG PO DAILY, (Reported) Furosemide (Lasix) 20 Mg Tablet, 20 MG PO BID, (Reported) Irbesartan (Irbesartan) 150 Mg Tablet, 150 MG PO DAILY, (Reported) Isosorbide Mononitrate (Isosorbide Mononitrate ER) 30 Mg Tab.er.24h, 30 MG PO BID, (Reported) Labetalol HCl (Labetalol HCl) 200 Mg Tablet, 400 MG PO BID, (Reported) Nitroglycerin (Nitroglycerin Patch) 0.4 Mg/Hr Patch.td24, 0.4 MG TD DAILY, (Reported) 12 HOURS ON, 12 HOURS OFF Potassium Chloride (Potassium Chloride) 10 Meq Capsule.er, 10 MEQ PO DAILY, (Reported) Ranolazine (Ranexa) 1,000 Mg Tab.er.12h, 1,000 MG PO BID, (Reported) Warfarin Sodium (Warfarin Sodium) 5 Mg Tablet, 15 MG PO DAILY for DVT Scheduled PRN Alprazolam (Alprazolam) 0.25 Mg Tablet, 0.25 MG PO BID PRN for ANXIETY, (Reported) Fluticasone Propionate (Flonase Allergy Relief) 9.9 Ml [place].susp, 2 SPRAY NARES DAILY PRN for CONGESTION, (Reported) Hydrocodone/Acetaminophen (Hydrocodone-Acetamin 10-325 mg) 1 Each Tablet, 1 TAB PO TID PRN for PAIN, (Reported) Nitroglycerin (Nitrostat) 0.4 Mg Tab.subl, 0.4 MG SL NITRO PRN for CHEST PAIN, (Reported) Allergies Coded Allergies: Penicillins (Verified Allergy, Unknown, RASH, 08/29/18) amoxicillin (Verified Allergy, Unknown, RASH, 08/29/18) baclofen (Verified Allergy, Unknown, RASH/NV, 08/29/18) ketorolac (Verified Allergy, Unknown, SOB, 08/29/18) lisinopril (Verified Allergy, Unknown, LIP SWELLING, 08/29/18) metaxalone (Verified Allergy, Unknown, RASH/NV, 08/29/18) naproxen (Verified Allergy, Unknown, RASH/NV, 08/29/18) tree nut (Verified Allergy, Unknown, SWELLING, 08/29/18) JORGE L BERMUDEZ MD Sep 05, 2018 17:19
[2018-09-05 17:52] VITALS: BP 111/58
[2018-09-05] MEDS: WARFARIN SOD 5 MG TAB PO SCH (17:52)
== END 2018-09-05 18:30 | disposition home or self-care (01) | DRG 176 ==
LOC: M ED 17:45 → M ED INP 20:15 → M PCU 21:51
PROVIDERS: ADMIT Internal Medicine; ATTEND Internal Medicine
DX: I26.99 Other pulmonary embolism without acute cor pulmonale (principal); Z68.44 Body mass index [BMI] 60.0-69.9, adult; E66.01 Morbid (severe) obesity due to excess calories; E04.1 Nontoxic single thyroid nodule; Z79.899 Other long term (current) drug therapy; Z79.82 Long term (current) use of aspirin; Z88.0 Allergy status to penicillin; Z88.8 Allergy status to other drugs, medicaments and biological substances; I25.10 Atherosclerotic heart disease of native coronary artery without angina pectoris; Z95.2 Presence of prosthetic heart valve; I10 Essential (primary) hypertension

== ENCOUNTER 2018-09-06 13:25 | Emergency (ER) | payer MEDICARE ==
[~2018-09-06] VITALS: Ht 175.3 cm; Wt 186.8 kg
[~2018-09-06 13:25] MED LIST: ALPR0.25 PO; AMLO10TA PO; ASPI81TA85 PO; ATOR40TA75 PO; CARV6.25 PO; CLON0.2T PO; DRIS50003 PO; FLON1SPR NARES; FLUO40CA PO; HYDR-4517 PO; IRBE150T12 PO; ISOS30TA4 PO; LABE20TAB PO; LASI20TA3 PO; NITR0.4D6 TD; NITR4TASL SL; PLAV1TAB2 PO; POTA10CA32 PO; RANE1000 PO; WARF-23 PO; XANA0.5T PO
[2018-09-06 14:39] LABS: HEMATOCRIT 38.9 % (42.0-52.0); HEMOGLOBIN 12.7 g/dl (13.5-17.5); MEAN CORPUSCULAR HEMOGLOBIN 29.8 pg (27.0-33.0); MEAN CORPUSCULAR HGB CONC 32.6 g/dl (32.0-36.5); MEAN CORPUSCULAR VOLUME 91.3 fl (80.0-96.0); PLATELET COUNT, AUTOMATED 169 10^3/uL (150-450); RED BLOOD COUNT 4.26 10^6/uL (4.30-6.10); WHITE BLOOD COUNT 6.7 10^3/uL (4.0-10.0)
[2018-09-06 14:51] LABS: INR 2.11; PROTHROMBIN TIME 23.5 SECONDS (11.8-14.0)
[2018-09-06 15:05] LABS: BLOOD UREA NITROGEN 21 MG/DL (7-18); CALCIUM LEVEL 9.1 MG/DL (8.5-10.1); CARBON DIOXIDE LEVEL 29 MEQ/L (21-32); CHLORIDE LEVEL 106 MEQ/L (98-107); CK-MB VALUE MASS 2.4 NG/ML (<3.6); CPK CREATINE PHOSPHOKINASE 119 U/L (39-308); GLOMERULAR FILTRATION RATE > 60.0 (>60); GLUCOSE, FASTING 102 MG/DL (70-100); MB/CK RELATIVE INDEX 2.02 (< OR =4); POTASSIUM SERUM 4.2 MEQ/L (3.5-5.1); SODIUM LEVEL 140 MEQ/L (136-145); TROPONIN I < 0.02 NG/ML (< 0.10)
[2018-09-06 15:45] VITALS: O2SAT 97
[2018-09-06 17:22] VITALS: BP 152/72
--- NOTE | 2018-09-08 19:15 | ECGEPIP ---
[facility] - ED Test Date: 2018-09-06 Pat Name: JACKI SCHULTZ Department: Room: - Gender: Male Sales Process Manager: : [id number] Requested By: Prudencio Aaron Order Number: [id number] Reading MD: Nehal Warren Measurements Intervals [place] Rate: 73 P: 22 AK: 204 QRS: 28 QRSD: 99 T: 10 QT: 389 QTc: 429 Interpretive Statements SINUS RHYTHM PRWP NSTTW abnormalities SIMILAR 08/29/18 Electronically Signed on 09-08-2018 19:15:23 EDT by Nehal Warren
== END 2018-09-06 17:10 | disposition home or self-care (01) ==
LOC: M ED 13:25
DX: R53.1 Weakness (principal); I26.99 Other pulmonary embolism without acute cor pulmonale; I10 Essential (primary) hypertension; E78.5 Hyperlipidemia, unspecified; F33.9 Major depressive disorder, recurrent, unspecified; E66.8 Other obesity; Z79.899 Other long term (current) drug therapy; Z79.82 Long term (current) use of aspirin; Z79.01 Long term (current) use of anticoagulants; Z88.0 Allergy status to penicillin; Z88.1 Allergy status to other antibiotic agents; Z88.8 Allergy status to other drugs, medicaments and biological substances; Z91.018 Allergy to other foods